=== PATIENT | male | born 1985 | race Caucasian/White ===

== ENCOUNTER 2020-07-04 16:50 | Emergency (ER) | payer MEDICARE, OTHER, MEDICAID | END 2020-07-04 19:14 | disposition home or self-care (01) | LOC: CSHERS 16:50 | DX: S42.212A Unspecified displaced fracture of surgical neck of left humerus, initial encounter for closed fracture (principal); F17.210 Nicotine dependence, cigarettes, uncomplicated; V89.2XXA Person injured in unspecified motor-vehicle accident, traffic, initial encounter ==

== ENCOUNTER 2020-08-09 12:37 | Outpatient (CLI) | payer OTHER, MEDICARE, MEDICAID | END 2020-08-09 12:38 | disposition home or self-care (01) | LOC: CSHWCC 12:37 | PROVIDERS: ATTEND Nurse Practitioner Family | DX: I87.2 Venous insufficiency (chronic) (peripheral) (principal); E11.622 Type 2 diabetes mellitus with other skin ulcer; L97.911 Non-pressure chronic ulcer of unspecified part of right lower leg limited to breakdown of skin; L97.921 Non-pressure chronic ulcer of unspecified part of left lower leg limited to breakdown of skin; R60.0 Localized edema; E11.40 Type 2 diabetes mellitus with diabetic neuropathy, unspecified; E78.2 Mixed hyperlipidemia; I10 Essential (primary) hypertension ==

== ENCOUNTER 2020-09-06 11:33 | Outpatient (CLI) | payer MEDICARE, MEDICAID | END 2020-09-06 11:34 | disposition home or self-care (01) | LOC: CSHWCC 11:33 | PROVIDERS: ATTEND Nurse Practitioner Family | DX: I87.2 Venous insufficiency (chronic) (peripheral) (principal); E11.622 Type 2 diabetes mellitus with other skin ulcer; E11.40 Type 2 diabetes mellitus with diabetic neuropathy, unspecified; L97.911 Non-pressure chronic ulcer of unspecified part of right lower leg limited to breakdown of skin; L97.921 Non-pressure chronic ulcer of unspecified part of left lower leg limited to breakdown of skin; E78.2 Mixed hyperlipidemia; I10 Essential (primary) hypertension; R60.0 Localized edema | CPT/HCPCS: 97139; G0463; 99213 ==

== ENCOUNTER 2020-12-12 09:08 | Outpatient (CLI) | payer MEDICARE, MEDICAID | END 2020-12-12 09:09 | disposition home or self-care (01) | LOC: CSHWCC 09:08 | PROVIDERS: ATTEND Nurse Practitioner Family | DX: L89.223 Pressure ulcer of left hip, stage 3 (principal); L89.313 Pressure ulcer of right buttock, stage 3; L89.323 Pressure ulcer of left buttock, stage 3; T30.0 Burn of unspecified body region, unspecified degree; G82.50 Quadriplegia, unspecified; M86.152 Other acute osteomyelitis, left femur; W51.XXXD Accidental striking against or bumped into by another person, subsequent encounter; Z74.01 Bed confinement status | CPT/HCPCS: 11042; 99213; G0463 ==

== ENCOUNTER 2021-02-15 09:34 | Outpatient (CLI) | payer MEDICARE, MEDICAID | END 2021-02-15 09:35 | disposition home or self-care (01) | LOC: CSHWCC 09:34 | PROVIDERS: ATTEND Nurse Practitioner Family | DX: I87.333 Chronic venous hypertension (idiopathic) with ulcer and inflammation of bilateral lower extremity (principal); I87.2 Venous insufficiency (chronic) (peripheral); E11.622 Type 2 diabetes mellitus with other skin ulcer; E11.40 Type 2 diabetes mellitus with diabetic neuropathy, unspecified; L97.211 Non-pressure chronic ulcer of right calf limited to breakdown of skin; L97.221 Non-pressure chronic ulcer of left calf limited to breakdown of skin; E78.2 Mixed hyperlipidemia; R60.0 Localized edema | CPT/HCPCS: 97139; G0463; 99213 ==

== ENCOUNTER 2021-03-15 10:13 | Outpatient (CLI) | payer MEDICARE, MEDICAID | END 2021-03-15 10:14 | disposition home or self-care (01) | LOC: CSHWCC 10:13 | PROVIDERS: ATTEND Nurse Practitioner Family | DX: L89.223 Pressure ulcer of left hip, stage 3 (principal); L89.313 Pressure ulcer of right buttock, stage 3; L89.323 Pressure ulcer of left buttock, stage 3; T30.0 Burn of unspecified body region, unspecified degree; G82.50 Quadriplegia, unspecified; W51.XXXD Accidental striking against or bumped into by another person, subsequent encounter; Z74.01 Bed confinement status | CPT/HCPCS: 99213; G0463 ==

== ENCOUNTER 2021-04-12 10:16 | Outpatient (CLI) | payer MEDICARE, MEDICAID | END 2021-04-12 10:17 | disposition home or self-care (01) | LOC: CSHWCC 10:16 | PROVIDERS: ATTEND Nurse Practitioner Family | DX: L89.313 Pressure ulcer of right buttock, stage 3 (principal); L89.323 Pressure ulcer of left buttock, stage 3; L89.223 Pressure ulcer of left hip, stage 3; L89.612 Pressure ulcer of right heel, stage 2; T30.0 Burn of unspecified body region, unspecified degree; G82.50 Quadriplegia, unspecified; M86.152 Other acute osteomyelitis, left femur; W51.XXXD Accidental striking against or bumped into by another person, subsequent encounter; Z74.01 Bed confinement status ==

== ENCOUNTER 2021-05-10 14:51 | Outpatient (CLI) | payer MEDICARE, MEDICAID | END 2021-05-10 14:52 | disposition home or self-care (01) | LOC: CSHWCC 14:51 | PROVIDERS: ATTEND Nurse Practitioner Family | DX: L89.223 Pressure ulcer of left hip, stage 3 (principal); L89.313 Pressure ulcer of right buttock, stage 3; L89.323 Pressure ulcer of left buttock, stage 3; L89.612 Pressure ulcer of right heel, stage 2; T30.0 Burn of unspecified body region, unspecified degree; M86.152 Other acute osteomyelitis, left femur; G82.50 Quadriplegia, unspecified; Z74.01 Bed confinement status; W51.XXXD Accidental striking against or bumped into by another person, subsequent encounter ==

== ENCOUNTER 2021-06-20 10:37 | Outpatient (CLI) | payer MEDICARE, MEDICAID | END 2021-06-20 10:38 | disposition home or self-care (01) | LOC: CSHWCC 10:37 | PROVIDERS: ATTEND Nurse Practitioner Family | DX: L89.223 Pressure ulcer of left hip, stage 3 (principal); L89.313 Pressure ulcer of right buttock, stage 3 | CPT/HCPCS: 97607; 99213; G0463 ==

== ENCOUNTER 2021-08-22 08:07 | Outpatient (CLI) | payer MEDICARE, MEDICAID | END 2021-08-22 08:08 | disposition home or self-care (01) | LOC: CSHWCC 08:07 | PROVIDERS: ATTEND Nurse Practitioner Family | DX: L89.313 Pressure ulcer of right buttock, stage 3 (principal); L89.323 Pressure ulcer of left buttock, stage 3; L89.223 Pressure ulcer of left hip, stage 3 ==

== ENCOUNTER 2021-10-01 08:05 | Outpatient (CLI) | payer MEDICARE, MEDICAID | END 2021-10-01 08:06 | disposition home or self-care (01) | LOC: CSHWCC 08:05 | PROVIDERS: ATTEND Nurse Practitioner Family | DX: L89.323 Pressure ulcer of left buttock, stage 3 (principal); L89.313 Pressure ulcer of right buttock, stage 3 | CPT/HCPCS: 97139; 97605; G0463; 99212 ==

== ENCOUNTER 2021-10-15 08:11 | Outpatient (CLI) | payer MEDICARE, MEDICAID | END 2021-10-15 08:12 | disposition home or self-care (01) | LOC: CSHWCC 08:11 | PROVIDERS: ATTEND Nurse Practitioner Family | DX: L89.313 Pressure ulcer of right buttock, stage 3 (principal); L89.323 Pressure ulcer of left buttock, stage 3 | CPT/HCPCS: 87070; 87077; 87186; 87205 ==

== ENCOUNTER 2022-01-01 08:05 | Outpatient (CLI) | payer MEDICARE, MEDICAID | END 2022-01-01 08:06 | disposition home or self-care (01) | LOC: CSHWCC 08:05 | PROVIDERS: ATTEND Nurse Practitioner Family | DX: L89.223 Pressure ulcer of left hip, stage 3 (principal); L89.323 Pressure ulcer of left buttock, stage 3; L89.313 Pressure ulcer of right buttock, stage 3 | CPT/HCPCS: 11042 ==

== ENCOUNTER 2022-01-21 08:12 | Outpatient (CLI) | payer MEDICARE, MEDICAID | END 2022-01-21 08:13 | disposition home or self-care (01) | LOC: CSHWCC 08:12 | PROVIDERS: ATTEND Preventive Medicine Undersea and Hyperbaric Medicine | DX: L89.223 Pressure ulcer of left hip, stage 3 (principal); L89.323 Pressure ulcer of left buttock, stage 3; L89.313 Pressure ulcer of right buttock, stage 3 | CPT/HCPCS: 97139; G0463; 99213 ==

== ENCOUNTER 2022-05-06 08:08 | Outpatient (CLI) | payer MEDICARE, MEDICAID | END 2022-05-06 08:09 | disposition home or self-care (01) | LOC: CSHWCC 08:08 | PROVIDERS: ATTEND Nurse Practitioner Family | DX: L89.223 Pressure ulcer of left hip, stage 3 (principal); L89.323 Pressure ulcer of left buttock, stage 3; L89.313 Pressure ulcer of right buttock, stage 3 ==

== ENCOUNTER 2022-12-17 14:05 | Outpatient (CLI) | payer MEDICARE, MEDICAID | END 2022-12-17 14:06 | disposition home or self-care (01) | LOC: CSHWCC 14:05 | PROVIDERS: ATTEND Nurse Practitioner Family | DX: L89.323 Pressure ulcer of left buttock, stage 3 (principal); L89.313 Pressure ulcer of right buttock, stage 3 | CPT/HCPCS: 97602 ==

== ENCOUNTER 2022-12-21 17:08 | Emergency (ER) | payer MEDICARE, MEDICAID | END 2022-12-21 17:59 | disposition home or self-care (01) | LOC: CSHERS 17:08 | DX: Z43.0 Encounter for attention to tracheostomy (principal); F17.290 Nicotine dependence, other tobacco product, uncomplicated | CPT/HCPCS: 99283 ==